=== PATIENT | female | born 1955 | race Caucasian/White ===

== ENCOUNTER 2020-06-29 08:55 | Outpatient (CLI) | payer OTHER, SELFPAY ==
--- NOTE | ~2020-06-29 | MM_ITS ---
EXAMINATION: MM screening [facility] BI w amadeo HISTORY: Screening TECHNIQUE: Craniocaudal and mediolateral oblique 3-D tomosynthesis images were obtained and synthetic 2-D images were generated. CAD analysis was submitted and interpreted. COMPARISON: Comparison to multiple prior studies sequentially, with oldest reviewed study dated 02/2011. BREAST PARENCHYMAL COMPOSITION: There are scattered areas of fibroglandular density. FINDINGS: There is no evidence of suspicious mass, calcification, or architectural distortion to sugg est malignancy in either breast. There has been no suspicious interval change. IMPRESSION: 1. No mammographic evidence of malignancy. 2. Recommend routine screening mammography in one year. BI-RADS Category 1: Negative Reviewed, dictated and finalized at location A. [employer]
== END 2020-06-29 08:56 | disposition home or self-care (01) ==
LOC: ANHIMG 08:56
PROVIDERS: PCP Family Medicine; Visit Provider Family Medicine
DX: Z12.31 Encounter for screening mammogram for malignant neoplasm of breast (principal)
CPT/HCPCS: 77063; 77067

== ENCOUNTER 2021-10-22 10:42 | Outpatient (CLI) | payer MEDICARE, OTHER, SELFPAY ==
--- NOTE | ~2021-10-22 | CT_ITS ---
EXAMINATION: CT lung screening DATE: 10/22/2021 11:24 INDICATION: Personal history of nicotine dependence, prior smoker with 30 pack year history TECHNIQUE: Computed tomography (CT) of the chest was performed without intravenous contrast. The dose -length product (DLP) was 126.37 mGy-cm. Automated exposure control and iterative reconstruction tech [employer] Box were employed. COMPARISON: 04/22/2019 FINDINGS: There is mild emphysema. Stable nodules of the left lung measure up to 3 mm. There is a sta ble 2 mm nodule of the right lung apex. No new pulmonary nodules are identified. The lungs are free o f focal airspace opacities. There is mild dependent atelectasis. There is no pleural effusion or pneu mothorax. Calcified coronary artery atherosclerosis is noted. The heart size is normal. There are no pathologically enlarged thoracic lymph nodes. Subendocardial fat deposition in the left ventricular a pex and interventricular septum are again noted, likely prior myocardial infarction. There is mild th oracic spondylosis. IMPRESSION: 1. Lung-RADS category 2: Benign appearance or behavior. Continue annual screening with noncontrast lo w-dose chest CT in 12 months. Reviewed, dictated and finalized at location A. IMPRESSION: 1. Lung-RADS category 2: Benign appearance or behavior. Continue annual screeni ng with noncontrast low-dose chest CT in 12 months.
== END 2021-10-22 10:43 | disposition home or self-care (01) ==
LOC: ANHIMG 10:58
PROVIDERS: PCP Family Medicine; Visit Provider Family Medicine
DX: Z12.2 Encounter for screening for malignant neoplasm of respiratory organs (principal); Z87.891 Personal history of nicotine dependence
CPT/HCPCS: 71271

== ENCOUNTER 2021-11-12 09:00 | Outpatient (CLI) | payer MEDICARE, OTHER, SELFPAY ==
--- NOTE | ~2021-11-12 | MM_ITS ---
EXAMINATION: MM screening [facility] BI w amadeo HISTORY: Screening mammogram TECHNIQUE: Craniocaudal and mediolateral oblique 3-D tomosynthesis images were obtained and synthetic 2-D images were generated. CAD analysis was submitted and interpreted. COMPARISON: 06/30/2020, 04/22/2019, 04/20/2018 bilateral screening mammogram examinations BREAST PARENCHYMAL COMPOSITION: The breasts are almost entirely fatty. FINDINGS: There is no evidence of suspicious mass, calcification, or architectural distortion to sugg est malignancy in either breast. There has been no suspicious interval change. IMPRESSION: 1. No mammographic evidence of malignancy. 2. Recommend routine screening mammography in one year. BI-RADS Category 1: Negative Reviewed, dictated and finalized at location A.
== END 2021-11-12 09:01 | disposition home or self-care (01) ==
PROVIDERS: PCP Family Medicine; Visit Provider Family Medicine
DX: Z12.31 Encounter for screening mammogram for malignant neoplasm of breast (principal)
CPT/HCPCS: 77063; 77067

== ENCOUNTER 2022-04-17 08:49 | Outpatient (CLI) | payer MEDICARE, OTHER, SELFPAY ==
--- NOTE | ~2022-04-17 | DEXA_ITS ---
Bone Density Report Name: RHONA HOWARD Age: 66 Sex: Female Ethnicity: White Date of : 1955 Indication: postmenopausal; screening for osteoporosis; Referring Provider: ALYSSA ALEXANDER Study: Bone densitometry was performed. Exam Date: April 17, 2022 Accession number: [id number] Bone Density: Region BMD T-score Z-score Classification AP Spine(L1-L4) 0.796 -2.3 -0.4 Osteopenia Femoral Neck (Left) 0.627 -2.0 -0.4 Osteopenia Total Hip (Left) 0.905 -0.3 1.0 Normal Femoral Neck (Right) 0.720 -1.2 0.4 Osteopenia Total Hip (Right) 0.900 -0.3 1.0 Normal Total Hip Mean 0.903 -0.3 1.0 Normal World Health Organization criteria for BMD impression classify patients as: Normal (T-score at or above -1.0), Osteopenia (T-score between -1.0 and -2.5), or Osteoporosis (T-score at or below -2.5). 10-year Fracture Risk(1): Major Osteoporotic Fracture 9.9% Hip Fracture 1.4% Reported Risk Factors: [place] (), Neck BMD=0.627, BMI=34.8 (1) FRAX(R) Version 3.08. Fracture probability calculated for an untreated patient. Fracture probability may be lower if the patient has received treatment. Clinical Information Provided by Patient: Patient maximum height was 64 Menopause Age: 52 No regular weight bearing exercise Drinks caffeinated beverages Onset of menses at age 15 Number of children 3 Impression: The patient has low bone mass, based on the Total Spine T-score. The patient has an estimated ten-year risk of hip fracture of 1.4% and an estimated ten-year risk of major fracture of 9.9%, based on the WHO FRAX algorithm. Discussion: BONE DENSITY IS LOW AT ONE OR MORE SKELETAL SITES. This patient's lowest T-score is low at one or more skeletal sites. It meets the World Health Organization's (WHO) criteria for ?low bone mass? (T-score between -1.0 and -2.5). The patient's 10-year risk of fracture as calculated by FRAX is less than the threshold where pharmacological therapy is recommended by the National Osteoporosis Foundation (NOF). However, all treatment decisions require clinical judgment and consideration of individual patient factors, including patient preferences, comorbidities, previous drug use, risk factors not captured in the FRAX model (e.g., frailty, falls, vitamin D deficiency, increased bone turnover, interval significant decline in bone density) and possible under or overestimation of fracture risk by FRAX. The patient should follow a healthful lifestyle (good nutrition with adequate calcium and vitamin D, and appropriate weight-bearing exercise). Follow-Up: Consider repeating this study in 2 to 3 years to reassess this patient's status, or sooner if there is some new clinical indication. Reported by: HIRO on 04/17/2022 9:16:00 AM.
== END 2022-04-17 08:50 | disposition home or self-care (01) ==
PROVIDERS: PCP Family Medicine; Visit Provider Family Medicine
DX: Z78.0 Asymptomatic menopausal state (principal); M85.89 Other specified disorders of bone density and structure, multiple sites
CPT/HCPCS: 77080

== ENCOUNTER 2022-10-29 14:06 | Outpatient (CLI) | payer MEDICARE, OTHER, SELFPAY ==
--- NOTE | ~2022-10-29 | CT_ITS ---
EXAMINATION:CT lung screening DATE: 10/29/2022 14:26 INDICATION: Tobacco use. Current smoker with 20 pack year history. TECHNIQUE: Computed tomography (CT) of the chest was performed without intravenous contrast. Automate d exposure control and iterative reconstruction technique were employed. The dose-length product (DLP ) was 167.77 mGy-cm. COMPARISON: Chest CT 10/22/2021 FINDINGS: There is mild scarring at the lung apices. There is mild emphysema. There is mild atelectas is bilaterally. Again seen is a 4 mm nodule in left lower lobe. No pleural effusion. The heart size i s normal. There are coronary artery calcifications. There is a small pericardial effusion. There are approximately 8 new masses in the liver measuring up to 3.0 cm. There are gallstones in the gallbladd er. There is mild thoracic spondylosis. IMPRESSION: 1. Lung-RADS category 2S: Benign appearance or behavior. 2. New liver masses, consistent with metastatic disease. Reviewed, dictated and finalized at location A.
== END 2022-10-29 14:07 | disposition home or self-care (01) ==
LOC: ANHIMG 14:14
PROVIDERS: PCP Family Medicine; Visit Provider Physician Assistant
DX: Z12.2 Encounter for screening for malignant neoplasm of respiratory organs (principal); F17.210 Nicotine dependence, cigarettes, uncomplicated; K76.89 Other specified diseases of liver
CPT/HCPCS: 71271

== ENCOUNTER 2022-11-06 07:04 | Outpatient (CLI) | payer MEDICARE, OTHER, SELFPAY ==
--- NOTE | ~2022-11-06 | CT_ITS ---
CT of the Abdomen and Pelvis: Indication: Liver disease Technique: 2.5 mm axial scans were obtained through the abdomen and pelvis following intravenous adm inistration of 100 cc of Omnipaque 350. Dose reduction technique was used on this scan by utilizing a utomated exposure control and iterative reconstruction technique. The dose-length product (DLP) was 9 71.14 mGy-cm. Findings: Scans through the lung bases are unremarkable. There are multiple hypodense, noncystic masses scattered throughout the liver, which are probably new since 10/22/2021. Largest lesion measures 3.5 cm in diameter. Calcified gallstones are present. The s pleen, pancreas, gallbladder, and adrenal glands are within normal limits.. Small nonobstructing righ t renal stones are present. No right hydronephrosis. There is a 9 x 7 mm distal left ureteral stone ( Hounsfield units 1300), with associated moderate left hydroureteronephrosis to this level. No evidenc e of aortic aneurysm. No lymphadenopathy. No bowel obstruction. Questionable area of wall thickening at the hepatic flexure the colon. There i s fat attenuation centrally with surrounding inflammatory change at the distal descending colon, comp atible with epiploic appendagitis. Images through the pelvis were performed. Urinary bladder unremarkable. No adnexal mass seen. No asci luis. Impression: Multiple hypodense hepatic masses, suspicious for hepatic metastatic disease, as detailed above. Perc utaneous tissue sampling should be strongly considered to establish a histologic diagnosis. Primary lesion for hepatic metastatic disease is unclear based on this exam. Questionable wall thicke piotr at the hepatic flexure of the colon, and colonic adenocarcinoma is not completely excluded. Cons ider colonoscopy for further evaluation. 9 x 7 mm distal left ureteral stone with moderate left hydroureteronephrosis to this level. Nonobstructing right renal stone. Epiploic appendagitis at the distal descending colon. Cholelithiasis. Reviewed, dictated and finalized at location M. Impression: Multiple hypodense hepatic masses, suspicious for hepatic metastatic disease, a s detailed above. Percutaneous tissue sampling should be strongly considered to establish a histologic diagnosis. Primary lesion for hepatic metastatic disease is unclear based on this exam. Qu estionable wall thickening at the hepatic flexure of the colon, and colonic ruthie nocarcinoma is not completely excluded. Consider colonoscopy for further evalua tion. 9 x 7 mm distal left ureteral stone with moderate left hydroureteronephrosis to this level. Nonobstructing right renal stone. Epiploic appendagitis at the distal descending colon. Cholelithiasis.
== END 2022-11-06 07:05 | disposition home or self-care (01) ==
PROVIDERS: PCP Family Medicine; Visit Provider Family Medicine
DX: K76.9 Liver disease, unspecified (principal); R16.0 Hepatomegaly, not elsewhere classified; N20.1 Calculus of ureter; N20.0 Calculus of kidney; K63.89 Other specified diseases of intestine; K80.20 Calculus of gallbladder without cholecystitis without obstruction
CPT/HCPCS: 74177; Q9967

== ENCOUNTER 2022-12-04 01:55 | Outpatient (CLI) | payer MEDICARE, OTHER, SELFPAY ==
--- NOTE | 2022-11-24 13:36 | PC.NURSE ---
Pre Radiology instructions [facility] [place] [facility] [place] [email or web address] date 12[facility]04[facility]22 at time ___0830____ for procedure Time: _1030___ YOU MAY BE MONITORED AT HOSPITAL FOR UP TO 4 HOURS AFTER YOUR PROCEDURE. A visitor will be allowed to accompany the patient into the hospital. You and your visitor will be asked to self-screen and do not enter if you have any COVID symptoms. A mask is OPTIONAL within the hospital. Patients are to have no food or drink 6 hours prior to procedure time Driving will be restricted after the procedure, you must have a person to drive you home. Labs will be drawn in preop area and once reviewed, you will be taken to radiology area for procedure. When the procedure is completed, you will be taken to outpatient where you will be monitored for several hours. You may have one visitor in this area. Other than holding anti-coagulants, patient may take other medication(s) as scheduled. Prior to your appointment date patients are instructed to hold anti-coagulants after discussing with ordering provider to stop. If unable to discontinue anti-coagulants please notify radiologist. ? No aspirin or warfarin (Coumadin) for 7 days prior to the procedure. ? No clopidogrel (Plavix), ticagrelor (Brilinta), prasugrel (Effient) or dabigatran (Pradaxa) for 5 days prior to the procedure. ? No rivaroxaban (Xarelto), apixaban (Eliquis), dipyridamole (Aggrenox or Persantine) or cilostazol (Pletal) for 2 days prior to the procedure. Medications to discontinue per physician: ___NONE Date to take last dose: Please leave all valuables, including medications, at home the day of procedure. The hospital will not accept responsibility for valuables. Wear comfortable, loose fitting clothing.? Follow any additional instructions given to you from ordering provider. Telephone instructions given to __PATIENT and asked if any additional questions and then verbalized understanding. Patient advised to call scheduling provider office or registration scheduling [phone] if any additional questions.
[2022-11-24 13:40] VITALS: BMI 33.5
[2022-12-04] VITALS (12 sets, daily range): BP systolic 121–176; BP diastolic 58–84; PULSE 55–69; RESP 16; TEMP 36.2; O2SAT 97–99
--- NOTE | ~2022-12-04 | US_ITS ---
EXAMINATION: US biopsy liver DATE: 12/04/2022 10:48 INDICATION: Multiple hepatic masses concerning for metastatic disease. TECHNIQUE: The procedure including the risks and benefits was discussed with the patient. Risks discu ssed included bleeding and infection. The patient understood the risks and agreed to proceed. The sk in overlying the right hepatic lobe was prepped and draped in usual sterile fashion. Anesthetic was administered with 1% lidocaine subcutaneously. An 18 gauge core biopsy needle was advanced under con tinuous ultrasound observation to the end of the lesions of interest. 3 core biopsy specimens were o btained. The needle was removed and the entry site was cleaned and dressed. Post procedure ultrasou nd demonstrated no hemorrhage. FINDINGS: Ultrasound images demonstrate multiple hypoechoic masses scattered throughout the liver cor responding to the hypoenhancing lesions on prior CT and concerning for metastatic disease. Subsequent images demonstrate the biopsy needle advanced into a 2.4 cm hypoechoic mass in the segment 2B of the liver. IMPRESSION: 1. Successful Ultrasound-guided biopsy of one of several hyperechoic hepatic masses consistent with m etastatic disease. Reviewed, dictated and finalized at location A. IMPRESSION: 1. Successful Ultrasound-guided biopsy of one of several hyperechoic hepatic ma sses consistent with metastatic disease.
[2022-12-04 09:09] LABS: Mean Platelet Volume 9.4 fl (7.4-10.4); Platelet Count Result 193 k/mm3 (150-375)
[2022-12-04 09:20] LABS: INR 0.9
== END 2022-12-04 15:01 | disposition home or self-care (01) ==
PROVIDERS: PCP Family Medicine; Visit Provider Radiology Diagnostic Radiology
DX: C22.8 Malignant neoplasm of liver, primary, unspecified as to type (principal); R16.0 Hepatomegaly, not elsewhere classified
CPT/HCPCS: 36415; 47000; 76942; 85049; 85610; 88307; 88342

== ENCOUNTER 2022-12-11 00:35 | Day surgery (SDC) | payer MEDICARE, OTHER, SELFPAY ==
[2022-12-01 10:28] VITALS: BMI 33.2
--- NOTE | 2022-12-10 15:53 | PM.HPGS ---
History of Present Illness History of Present Illness Consent: Risks, benefits, and alternatives have been discussed and questions answered. Patient agrees to proceed with procedure. Chief complaint: Hepatomagely,Disease of intestine,famhx colon ca Narrative: Sondra Palacios is a 66 year old female Referred for colon cancer screening. Her parents and a sibling had colon cancer. Review of Systems Review of Systems: All systems reviewed & are unremarkable except as noted in HPI and below PMFSH Past Medical History Medical History IFG (impaired fasting glucose) Obesity Family History Family History Father Carcinoma of colon Mother Carcinoma of colon Sibling Carcinoma of colon Family history of lung cancer Family history of malignant neoplasm of breast in first degree relative Social History Social History Smoking packs per day: 1 Smoking cigarettes per day: 20.0 Years smoked: 20 Smoking pack-years: 20.00 Smoking status: Former smoker Tobacco type: cigarettes Second hand tobacco smoke exposure: No Smoking end date: 06/15/12 Additional smoking assessment comments: uses menthol vape pen, no nicotine Alcohol intake: current Drinks per week: 2 Substance use: current Substance use type: marijuana Other substance usage details: gummies on rare occasion Living arrangements: with family Occupation/Education: retired Gender identity (if verbalized by the patient): Female Spiritual care concerns: No Meds Home Medications and Allergies Home Medications Medication Instructions Recorded Confirmed Type lisinopril 40 mg tablet 40 mg PO DAILY #90 tabs 06/18/22 12/11/22 Rx metoprolol succinate 100 mg 100 mg PO DAILY #90 tabs 09/09/22 12/11/22 Rx tablet,extended release 24 hr semaglutide (weight loss) 0.5 0.5 mg (0.5 mL) subcut WEEKLY #2 mL 09/25/22 12/11/22 Rx mg/0.5 mL subcutaneous pen injector Allergies Allergy/AdvReac Type Severity Reaction Status Date / Time sulfamethoxazole Allergy Severe Itching Verified 12/11/22 06:45 sulfamethizole Allergy Unknown Itching Verified 12/11/22 06:45 trimethoprim Allergy Unknown Itching Verified 12/11/22 06:45 amlodipine AdvReac Mild Swelling Verified 12/11/22 06:45 Exam Const: General: alert Orientation/consciousness: patient oriented x3 Resp: Auscultation: clear to auscultation bilaterally Cardio: Rhythm: regular rhythm GI: GI Palp: Yes Soft to palpation and No Tenderness to palpation present (GI) Neuro: General: patient oriented x3 Assessment and Plan Assessment and plan (1) Colon cancer screening: Code(s): Z12.11 - Encounter for screening for malignant neoplasm of colon Status: Acute Assessment and Plan: Colonoscopy with possible biopsy or polypectomy or cautery or injection of substances.
[2022-12-11 06:48] VITALS: BP 143/67; PULSE 84; RESP 18; TEMP 35.6; O2SAT 97
[2022-12-11] MEDS: LACTATED RINGERS 1,000 ML 150 ML IV CONT (06:57)
--- NOTE | 2022-12-11 07:29 | WPDANESEPPF ---
Anes - Initial Pre Proc Eval Procedure: Operation Date: 12/11/22 08:00 Proposed Procedures p Colonoscopy - Pascual Rice MD Date/Time: 12/11/22 07:29 Surgeon: Pascual Rice MD Pre Op Diagnosis: Hepatomagely,Disease of intestine,famhx colon ca Patient Data Age: 66 Gender: F Height: 1.63 m Weight: 85.6 kg Last Vital Signs Temp 96.1 F L 12/11/22 06:48 Pulse 84 12/11/22 06:48 Resp 18 12/11/22 06:48 BP 143/67 H 12/11/22 06:48 Pulse Ox 97 12/11/22 06:48 O2 Del Method Room Air 12/11/22 06:48 Allergies Allergy/AdvReac Type Severity Reaction Status Date / Time sulfamethoxazole Allergy Severe Itching Verified 12/11/22 06:45 sulfamethizole Allergy Unknown Itching Verified 12/11/22 06:45 trimethoprim Allergy Unknown Itching Verified 12/11/22 06:45 amlodipine AdvReac Mild Swelling Verified 12/11/22 06:45 Home Medications Medication Instructions Recorded Confirmed Type lisinopril 40 mg tablet 40 mg PO DAILY #90 tabs 06/18/22 12/11/22 Rx metoprolol succinate 100 mg 100 mg PO DAILY #90 tabs 09/09/22 12/11/22 Rx tablet,extended release 24 hr semaglutide (weight loss) 0.5 0.5 mg (0.5 mL) subcut WEEKLY #2 mL 09/25/22 12/11/22 Rx mg/0.5 mL subcutaneous pen injector Patient hx anesthesia problems: none Family hx anesthesia problems: none Results Review: All pre-operative results and documents have been reviewed as part of the pre-operative evaluation. [facility] Past Medical History Medical History IFG (impaired fasting glucose) Obesity Family History Family History Father Carcinoma of colon Mother Carcinoma of colon Sibling Carcinoma of colon Family history of lung cancer Family history of malignant neoplasm of breast in first degree relative Social History Social History Smoking packs per day: 1 Smoking cigarettes per day: 20.0 Years smoked: 20 Smoking pack-years: 20.00 Smoking status: Former smoker Tobacco type: cigarettes Second hand tobacco smoke exposure: No Smoking end date: 06/15/12 Additional smoking assessment comments: uses menthol vape pen, no nicotine Alcohol intake: current Drinks per week: 2 Substance use: current Substance use type: marijuana Other substance usage details: gummies on rare occasion Living arrangements: with family Occupation/Education: retired Gender identity (if verbalized by the patient): Female Spiritual care concerns: No Anes - Eval Final PreProcedure Day of Procedure 12/11/22 07:29 Patient weight: obese Heart: regular rate and rhythm Lungs: clear to auscultation Airway: Mallampati scale class II Neurological: alert and oriented Last oral intake: >/= 8 hours ASA classification: II Emergent: no Anesthetic plan: proceed Anesthesia type and monitoring: general GIVS and standard monitoring Results Review: All pre-operative results and documents have been reviewed as part of the pre-operative evaluation. Informed Consent: The patient's anesthetic plan and its attendant risks and benefits were discussed with the patient/family/POA. Questions were solicited and answers provided to the satisfaction of the patient/family/POA.
[2022-12-11 08:16] VITALS: BP 111/56; PULSE 69; RESP 24; O2SAT 96
[2022-12-11 08:26] VITALS: BP 120/64; PULSE 64; RESP 20; O2SAT 98
[2022-12-11 08:36] VITALS: BP 135/72; PULSE 54; RESP 20; O2SAT 98
== END 2022-12-11 08:50 | disposition home or self-care (01) ==
PROVIDERS: PCP Family Medicine; Visit Provider Internal Medicine Gastroenterology
PROC: 0DJD8ZZ Inspection of Lower Intestinal Tract, Via Natural or Artificial Opening Endoscopic (ICD-10-PCS; CPT 45378; principal; 2022-12-11 08:00)
DX: Z12.11 Encounter for screening for malignant neoplasm of colon (principal); C18.0 Malignant neoplasm of cecum; K63.5 Polyp of colon; K64.8 Other hemorrhoids; K57.30 Diverticulosis of large intestine without perforation or abscess without bleeding; Z80.0 Family history of malignant neoplasm of digestive organs; Z79.899 Other long term (current) drug therapy; Z87.891 Personal history of nicotine dependence; F12.90 Cannabis use, unspecified, uncomplicated; E66.9 Obesity, unspecified; Z68.32 Body mass index [BMI] 32.0-32.9, adult
CPT/HCPCS: 45380; 45385; 88305; J2704; J7120

== ENCOUNTER 2023-03-03 07:54 | Outpatient (CLI) | payer MEDICARE, OTHER, SELFPAY ==
--- NOTE | ~2023-03-03 | XR_ITS ---
EXAMINATION: XR abdomen/kub 1V INDICATION: Left ureteral stone TECHNIQUE: Supine views of the abdomen were obtained on 2 radiographs. COMPARISON: CT, 11/06/2022 FINDINGS: There is a 6 mm stone in the left pelvis at the expected location of the distal left ureter . There phleboliths of the pelvis. A gallstone is noted in the right upper quadrant. The visualized l karie bases are clear. IMPRESSION: 1. 6 mm stone of the left renal pelvis at the expected location of the distal ureter. Reviewed, dictated and finalized at location L. IMPRESSION: 1. 6 mm stone of the left renal pelvis at the expected location of the distal u reter.
--- NOTE | ~2023-03-03 | US_ITS ---
EXAMINATION: US retroperitoneal comp DATE: 03/03/2023 08:45 INDICATION: Left ureteral stone TECHNIQUE: Multiple ultrasound grayscale images of the kidneys were obtained. COMPARISON: CT dated 11/06/2022 and KUB dated 03/03/2023 FINDINGS: The right kidney measures 10.3 x 4.8 x 4.7 cm. The left kidney measures 9.4 x 5.1 x 4.5 cm. The kidne ys demonstrate normal echogenicity. There is twinkle artifact at the lower pole of the right kidney a nd at the mid and lower pole of the left kidney consistent with the presence of renal stones not larg e enough to demonstrate posterior acoustic shadowing. Mild left hydronephrosis likely related to a di stal left ureteral stone seen on the immediately prior KUB and earlier CT. The bladder is normal with bilateral ureteral jets visualized on color Doppler. IMPRESSION: 1. Bilateral nephrolithiasis with mild left hydronephrosis but left-sided ureteral jet consistent wi th likely partial obstruction related to a distal left ureteral stone seen on prior CT and KUB. Reviewed, dictated and finalized at location A. IMPRESSION: 1. Bilateral nephrolithiasis with mild left hydronephrosis but left-sided uret eral jet consistent with likely partial obstruction related to a distal left ur eteral stone seen on prior CT and KUB.
== END 2023-03-03 07:55 | disposition home or self-care (01) ==
PROVIDERS: PCP Family Medicine; Visit Provider Physician Assistant
DX: N20.2 Calculus of kidney with calculus of ureter (principal)
CPT/HCPCS: 74018; 76770

== ENCOUNTER 2023-04-20 10:35 | Outpatient (CLI) | payer MEDICARE, OTHER, SELFPAY ==
--- NOTE | ~2023-04-20 | XR_ITS ---
EXAMINATION: XR abdomen/kub 1V INDICATION: Left ureteral stone TECHNIQUE: Supine views of the abdomen were obtained on 2 radiographs. COMPARISON: 03/03/2023 FINDINGS: A left internal ureteral stent is in expected position. No definite urolithiasis is identif ied. There is a phlebolith of the right pelvis. The bowel gas pattern is normal. Cholelithiasis is no yuri. IMPRESSION: 1. Left ureteral stent in expected position. No urolithiasis identified. Reviewed, dictated and finalized at location B. [employer]PER[employer]
== END 2023-04-20 10:36 | disposition home or self-care (01) ==
PROVIDERS: PCP Family Medicine; Visit Provider Physician Assistant
DX: N20.1 Calculus of ureter (principal)
CPT/HCPCS: 74018

== ENCOUNTER 2025-04-09 13:01 | Emergency (ER) | payer MEDICARE, OTHER, SELFPAY ==
--- NOTE | ~2025-04-09 | XR_ITS ---
EXAMINATION: XR wrist RT min 3V, 04/09/2025 13:10 CDT HISTORY: fall last night, pain in wrist COMPARISON: No comparisons available. Findings: Impacted fracture of the distal radius. Nondisplaced fracture of the ulnar styloid process. No significant degenerative changes. Soft tissue swelling. Impression: Fractures detailed above Reviewed, dictated and finalized at location P. Impression: Fractures detailed above
--- NOTE | 2025-04-09 13:11 | ED_ITS ---
HPI - Extremity Injury (Upper) General Chief Complaint: Extremity Injury, Upper Stated Complaint: R Wrist Pain Related Data Home Medications ?Medication ?Instructions ?Recorded ?Confirmed ?Last Taken ?Type encorafenib 75 mg capsule 300 mg PO DAILY 04/18/2410/06 Unknown History (Braftovi) ondansetron HCl 8 mg tablet 8 mg PO Q8H PRN nausea and vomiting 04/18/24 04/18/24 Unknown History amlodipine 5 mg tablet mg 04/09/25 Unknown History escitalopram oxalate 10 mg tablet mg 04/09/25 Unknown History magnesium oxide 400 mg (241.3 mg mg 04/09/25 Unknown History magnesium) tablet olanzapine 5 mg tablet mg 04/09/25 Unknown History Allergies Allergy/AdvReac Type Severity Reaction Status Date / Time sulfamethoxazole Allergy Severe Itching Verified 04/09/25 13:08 sulfamethizole Allergy Unknown Itching Verified 04/09/25 13:08 trimethoprim Allergy Unknown Itching Verified 04/09/25 13:08 amlodipine AdvReac Mild Swelling Verified 04/09/25 13:08 PMFSH Past Medical History Medical History IFG (impaired fasting glucose) Left ureteral calculus Obesity Surgical History Surgical History Port-A-Cath in place Family History Family History Father Carcinoma of colon Mother Carcinoma of colon Sibling Carcinoma of colon Family history of lung cancer Family history of malignant neoplasm of breast in first degree relative Social History Social History Smoking packs per day: 1 Smoking cigarettes per day: 20.0 Years smoked: 20 Smoking pack-years: 20.00 Smoking status: Former smoker Tobacco type: cigarettes Second hand tobacco smoke exposure: No Smoking end date: 06/15/12 Additional smoking assessment comments: uses menthol vape pen, no nicotine Alcohol intake: current Drinks per week: 2 Substance use: current Substance use type: marijuana Other substance usage details: gummies on rare occasion Living arrangements: with family Occupation/Education: retired Gender identity (if verbalized by the patient): Female Spiritual care concerns: No Discharge Plan Discharge Patient Language: Portuguese Prescriptions: No Action olanzapine 5 mg tablet amlodipine 5 mg tablet magnesium oxide 400 mg (241.3 mg magnesium) tablet escitalopram oxalate 10 mg tablet Braftovi 75 mg capsule 300 mg PO DAILY ondansetron HCl 8 mg tablet 8 mg PO Q8H PRN (Reason: nausea and vomiting) metoprolol succinate 50 mg tablet extended release 24 hr 50 mg PO DAILY Qty: 30 1RF meclizine 25 mg tablet 25 mg PO TID PRN (Reason: dizziness) Qty: 90 0RF gabapentin 300 mg capsule 300 mg PO TID Qty: 90 0RF loperamide 2 mg capsule 2 mg PO Q6H PRN (Reason: loose stool) Qty: 60 0RF prochlorperazine maleate 10 mg tablet 10 mg PO Q6H PRN (Reason: nausea and vomiting) Qty: 60 0RF Follow-up/Referrals: Jerrell Snow MD [Primary Care Provider, Family Practice]
[2025-04-09 13:12] VITALS: BP 106/46; PULSE 72; RESP 16; TEMP 36.3; O2SAT 99
--- NOTE | 2025-04-09 13:24 | ED.GENADULT ---
HPI - General Adult General Chief complaint: Extremity Injury, Upper Stated complaint: R Wrist Pain Time Seen by Provider: 04/09/25 13:17 Source: patient Mode of arrival: ambulatory Limitations: no limitations History of Present Illness HPI narrative: 69-year-old female patient presents to [facility] complaints of right wrist pain. Patient states that she got up last night and states she stumbled a little bit lost her balance and fell hurting her right wrist. Patient states she fell on linoleum but denies any new head or lost consciousness. Patient does have history of colon cancer and actively getting chemo and radiation at this time. Patient's states that she has fallen a couple of times in the last couple of months and continues to be unsteady on her feet but does not use any walking assistive devices. Patient has not iced the wrist or taking anything for pain. Related Data Home Medications ?Medication ?Instructions ?Recorded ?Confirmed ?Last Taken ?Type encorafenib 75 mg capsule 300 mg PO DAILY 04/18/24 04/18/24 Unknown History (Braftovi) ondansetron HCl 8 mg tablet 8 mg PO Q8H PRN nausea and vomiting 04/18/24 04/18/24 Unknown History amlodipine 5 mg tablet mg 04/09/25 Unknown History escitalopram oxalate 10 mg tablet mg 04/09/25 Unknown History magnesium oxide 400 mg (241.3 mg mg 04/09/25 Unknown History magnesium) tablet olanzapine 5 mg tablet mg 04/09/25 Unknown History Allergies Allergy/AdvReac Type Severity Reaction Status Date / Time sulfamethoxazole Allergy Severe Itching Verified 04/09/25 13:08 sulfamethizole Allergy Unknown Itching Verified 04/09/25 13:08 trimethoprim Allergy Unknown Itching Verified 04/09/25 13:08 amlodipine AdvReac Mild Swelling Verified 04/09/25 13:08 Review of Systems Review of Systems: CONSTITUTIONAL: Denies fever, chills, or sweats. EYES: Denies visual changes, redness, or discharge. ENT: Denies rhinorrhea, congestion, sore throat, or otalgia. CARDIOVASCULAR: Denies chest pain, palpitations, or edema. RESPIRATORY: Denies cough or dyspnea. GASTROINTESTINAL: Denies abdominal pain, nausea, vomiting, or diarrhea. GENITOURINARY: Denies dysuria or hematuria. SKIN: Denies rash or itching. MUSCULOSKELETAL: Denies back pain, joint pain, or myalgia. Positive right wrist pain NEUROLOGIC: Denies headache, numbness, or weakness. PSYCHIATRIC: Denies anxiety or depression. COUNTS INCLUDE 234 BEDS AT THE [facility] Past Medical History Medical History Left ureteral calculus Obesity IFG (impaired fasting glucose) Surgical History Surgical History Port-A-Cath in place Family History Family History Father Carcinoma of colon Mother Carcinoma of colon Sibling Carcinoma of colon Family history of lung cancer Family history of malignant neoplasm of breast in first degree relative Social History Social History Smoking packs per day: 1 Smoking cigarettes per day: 20.0 Years smoked: 20 Smoking pack-years: 20.00 Smoking status: Former smoker Tobacco type: cigarettes Second hand tobacco smoke exposure: No Smoking end date: 06/15/12 Additional smoking assessment comments: uses menthol vape pen, no nicotine Alcohol intake: current Drinks per week: 2 Substance use: current Substance use type: marijuana Other substance usage details: gummies on rare occasion Living arrangements: with family Occupation/Education: retired Gender identity (if verbalized by the patient): Female Spiritual care concerns: No Comments At the time of my signature I agree with nursing past medical history, surgical, social, and family history. There is no relevant family history pertinent to the presenting complaint. Exam Narrative: GENERAL: Well-appearing, well-nourished, and in no acute distress. HEAD: Normocephalic, atraumatic. EYES: PERRLA and EOMI. ENT: Nares clear, no rhinorrhea or epistaxis. Mucous membranes moist. NECK: Supple. No lymphadenopathy CHEST: Clear to auscultation. No respiratory distress. HEART: Regular rate and rhythm. No murmur heard. Normal peripheral pulses. ABDOMEN: Soft, nontender, nondistended, normal active bowel sounds. EXTREMITIES: the R wrist is without obvious asymmetry or deformity when compared to the L wrist. No surface trauma, open wounds, slight swelling noted to the radial side of the right wrist area, No obvious deformity. No overlying erythema or warmth. No bony crepitus. tenderness noted to the 3rd metacarpal area on the right hand. No scaphoid fullness or tenderness to direct palpation or axial load. Decrease in flex/extension, ulnar/radial deviation. Motor/sensory function of ulnar, radial, median nerves intact. Ulnar and radial pulses intact. Negaitve Phalen's/Tinel's sign. Negative Jack test. SKIN: Warm, dry, no rash. NEURO: No focal deficits. Alert and oriented x3. Course Course Level of Care: Express Care Visit Reevaluation(s) Reevaluation #1: Re-evaluated patient notified her that x-ray does show fracture to the radial side of the wrist as well as the ulnar styloid. Patient will be put into a temporary fiberglass splint and referred to Orthopedic surgery for further follow-up. Discussed with patient she can continue taking Tylenol for pain continue to ice the area on top of the splint. Discussed with patient that if she continues to have issues with balance highly recommend that she use her cane that she has at home all the time when walking and she needs to follow up with her primary doctor in regards to the balance issue.Patient verbalized understanding denies any other questions or concerns at this time. Date: 04/09/25 Time: 14:19 Vital Signs Vital signs: Vital Signs Temperature 36.3 C L 04/09/25 13:12 Pulse Rate 72 04/09/25 13:12 Respiratory Rate 16 04/09/25 13:12 Blood Pressure 106/46 L 04/09/25 13:12 Pulse Oximetry 99 04/09/25 13:12 Temperature 36.3 C L 04/09/25 13:12 Pulse Rate 72 04/09/25 13:12 Respiratory Rate 16 04/09/25 13:12 Blood Pressure 106/46 L 04/09/25 13:12 Pulse Oximetry 99 04/09/25 13:12 Vital signs reviewed. Medical Decision Making MDM Narrative Medical decision making narrative: plan care patient's x-rays right wrist to assess for any acute fractures. I will reassess patient was has resulted. Differential Diagnosis Differential Diagnosis: Differential diagnosis: Fracture, ligament injury, scaphoid fracture, sprains, tendinitis, carpal tunnel syndrome, DeQuervain's tenosynovitis Vital Signs Vital Signs: Vital Signs Temperature 36.3 C L 04/09/25 13:12 Pulse Rate 72 04/09/25 13:12 Respiratory Rate 16 04/09/25 13:12 Blood Pressure 106/46 L 04/09/25 13:12 Pulse Oximetry 99 04/09/25 13:12 Temperature 36.3 C L 04/09/25 13:12 Pulse Rate 72 04/09/25 13:12 Respiratory Rate 16 04/09/25 13:12 Blood Pressure 106/46 L 04/09/25 13:12 Pulse Oximetry 99 04/09/25 13:12 Vital signs reviewed. Imaging Data Radiologist's impression: [address] [place] [address] XRay Report Signed Patient: Sondra Palacios : 1955 MR#: [id number] Age: 69 Acct:[id number] Loc: [facility] ADM Date: 04/09/[address]: Ordering Physician: Janie Duffy APRN Date of Service: 04/09/25 Procedure(s): XR wrist RT min 3V Accession Number(s): [id number] cc: Jerrell Snow MD; Janie Duffy APRN; Lucy Monique APRN~ EXAMINATION: XR wrist RT min 3V, 04/09/2025 13:10 CDT HISTORY: fall last night, pain in wrist COMPARISON: No comparisons available. Findings: Impacted fracture of the distal radius. Nondisplaced fracture of the ulnar styloid process. No significant degenerative changes. Soft tissue swelling. Impression: Fractures detailed above Reviewed, dictated and finalized at location P. Critical Care Time Critical Care Time Critical Care Time: No Discharge Plan Discharge Clinical Impression: Closed fracture of right wrist Patient Disposition: Home Condition: Stable Instructions: Antibiotic Form, Wrist Fracture in Adults (ED) Additional Instructions: Ice to the area 20-30 minutes 4-6 times a day Elevate above heart Elastic wrap or orthopedic splint as directed for comfort until follow up with Ortho. Tylenol for pain Follow up with your primary care provider if the condition is not improving within 1 week or sooner if the Condition worsens with numbness, tingling, decrease sensation with weakness to seek ER. Patient Language: Thai Prescriptions: No Action olanzapine 5 mg tablet amlodipine 5 mg tablet magnesium oxide 400 mg (241.3 mg magnesium) tablet escitalopram oxalate 10 mg tablet Braftovi 75 mg capsule 300 mg PO DAILY ondansetron HCl 8 mg tablet 8 mg PO Q8H PRN (Reason: nausea and vomiting) metoprolol succinate 50 mg tablet extended release 24 hr 50 mg PO DAILY Qty: 30 1RF meclizine 25 mg tablet 25 mg PO TID PRN (Reason: dizziness) Qty: 90 0RF gabapentin 300 mg capsule 300 mg PO TID Qty: 90 0RF loperamide 2 mg capsule 2 mg PO Q6H PRN (Reason: loose stool) Qty: 60 0RF prochlorperazine maleate 10 mg tablet 10 mg PO Q6H PRN (Reason: nausea and vomiting) Qty: 60 0RF Follow-up/Referrals: Jerrell Snow MD [Primary Care Provider, Family Practice] Rafa Middleton MD [Physician, Orthopedics] Time of Disposition: 14:18
== END 2025-04-09 14:30 | disposition home or self-care (01) ==
PROVIDERS: Emergency Provider Nurse Practitioner Family; PCP Family Medicine
DX: S52.501A Unspecified fracture of the lower end of right radius, initial encounter for closed fracture (principal); W19.XXXA Unspecified fall, initial encounter; C18.9 Malignant neoplasm of colon, unspecified; Z79.60 Long term (current) use of unspecified immunomodulators and immunosuppressants; E66.9 Obesity, unspecified; Z68.23 Body mass index [BMI] 23.0-23.9, adult; F12.90 Cannabis use, unspecified, uncomplicated; Z87.891 Personal history of nicotine dependence
CPT/HCPCS: 29125; 73110; 99214; A4565; G0463